=== PATIENT | female | born 1995 | race Hispanic/Latino ===

== ENCOUNTER 2022-06-01 09:12 | Emergency (ER) | payer BC ==
[~2022-06-01] VITALS: Ht 149.9 cm; Wt 42.6 kg
[2022-06-01 10:02] LABS: MEAN CORPUSCULAR HEMOGLOBIN 30.3 pg (27.0-33.0); MEAN CORPUSCULAR HGB CONC 33.7 g/dL (32.0-36.0); RED BLOOD CELL COUNT(AUTO) 4.22 MIL/uL (4.00-5.50); RED CELL DISTRIBUTION WIDTH 12.4 % (11.0-15.5); WHITE BLOOD COUNT (AUTO) 11.1 K/uL (4.8-10.8)
[2022-06-01 10:03] LABS: APPEARANCE,URINE CLOUDY (CLEAR); BILIRUBIN,URINE NEGATIVE (NEGATIVE); COLOR,URINE YELLOW (YELLOW); GLUCOSE, URINE (UA) NEGATIVE (NEGATIVE); KETONES,URINE 5 mg/dL (NEGATIVE); LEUKOCYTE ESTERASE ,URINE NEGATIVE Leu/uL (NEGATIVE); NITRATE,URINE NEGATIVE (NEGATIVE); OCCULT BLOOD,URINE SMALL (NEGATIVE); PROTEIN,URINE 200 mg/dL (NEGATIVE); UROBILINOGEN,URINE 0.2 mg/dL (0.2-1.0)
[2022-06-01 10:05] LABS: HCG,QUALITATIVE URINE NEGATIVE (NEGATIVE)
[2022-06-01 10:09] LABS: CREATININE 0.9 mg/dL (0.5-1.5); POTASSIUM 3.8 mmol/L (3.5-5.1)
[2022-06-01 10:14] LABS: ALBUMIN 3.9 g/dL (3.5-5.0); TOTAL PROTEIN, SERUM 7.6 g/dL (6.0-8.3)
[2022-06-01 10:25] LABS: MUCUS,URINE Few LPF (None Seen); SQUAMOUS EPITHELIAL CELL,UR Few /HPF (0-2)
[2022-06-01 10:27] LABS: BACTERIA,URINE Few /HPF (None Seen); WBC,URINE 0-1 /HPF (0-1)
[2022-06-01 10:33] LABS: URIC ACID CRYSTALS,URINE Few /LPF (None Seen)
[2022-06-01] MEDS ORDERED: TAMSULOSIN HCL 0.4 MG CAP.ER.24H PO STA (11:35)
[2022-06-01] MEDS ORDERED: 0.9%NACL 1000ML 1,000 ML IV ONE (12:00)
[2022-06-01] MEDS ORDERED: KETOROLAC 30MG VIAL (30MG/ML) IVP ONE (12:00)
[2022-06-01] MEDS ORDERED: TAMS-1 PO (12:43)
[2022-06-01] MEDS ORDERED: KETO10 PO (12:43)
[2022-06-01 12:55] VITALS: BP 117/70
== END 2022-06-01 12:55 | disposition home or self-care (01) ==
LOC: EDH 09:12
DX: N20.0 Calculus of kidney (principal)
CPT/HCPCS: 99284; 74176; 96374; 96361; 80053; 85027; 81001; 81025; 36415; J7030; J1885

== ENCOUNTER 2024-11-15 07:24 | Emergency (ER) | payer SELFPAY ==
[~2024-11-15] VITALS: Ht 149.9 cm; Wt 44.0 kg
[~2024-11-15 07:24] MED LIST: KETO10 PO; TAMS-55 PO
[2024-11-15 07:54] LABS: APPEARANCE,URINE CLOUDY (CLEAR); GLUCOSE, URINE (UA) NEGATIVE (NEGATIVE); HCG,QUALITATIVE URINE POSITIVE (NEGATIVE); LEUKOCYTE ESTERASE ,URINE NEGATIVE Leu/uL (NEGATIVE); NITRATE,URINE NEGATIVE (NEGATIVE); OCCULT BLOOD,URINE LARGE (NEGATIVE)
[2024-11-15 07:55] LABS: ADD UA MICROSCOPIC YES
[2024-11-15 07:56] LABS: SQUAMOUS EPITHELIAL CELL,UR MANY /HPF (0-2)
[2024-11-15 08:42] LABS: IMMATURE GRANULOCYTE ABSOLUTE 0.03 K/uL (0-1); NUCLEATED RED BLOOD CELLS 0.0 % (0.0-0.19); PLATELET COUNT (AUTO) 237 K/uL (130-400); RED BLOOD CELL COUNT(AUTO) 4.01 MIL/uL (4.00-5.50); RED CELL DISTRIBUTION WIDTH 12.7 % (11.0-15.5); WHITE BLOOD COUNT (AUTO) 11.1 K/uL (4.8-10.8)
[2024-11-15 08:46] LABS: CREATININE 0.6 mg/dL (0.5-1.0); GLOMERULAR FILTR. RATE CALC 124.0 mL/min (>90); GLUCOSE,RANDOM 100.0 mg/dL (70-105); SODIUM SERUM 139.0 mmol/L (136-145); UREA NITROGEN, BLOOD 13.0 mg/dL (7-18)
[2024-11-15 08:52] LABS: ASPARTATE AMINOTRANSFERASE 16.0 U/L (10-37); TOTAL PROTEIN, SERUM 7.9 g/dL (6.0-8.3)
--- NOTE | 2024-11-15 09:33 | NUR ---
TRANSF[place] [facility] [place]OMER SUPPORT MANAGER SERVICE DR DR COREAS. CECILE FOX
[2024-11-15] MEDS: 0.9%NACL 1000ML 1,000 ML IV ONE (09:50)
--- NOTE | 2024-11-15 10:07 | NUR ---
TRANSFER CALL PLACED BY PRIMARY NURSE TO [facility] [phone] INFORMATION PROVIDED WILL CALL BACK. CECILE FOX
--- NOTE | 2024-11-15 10:12 | HMCIMG ---
EXAM: US Obstetrical, Complete >14 weeks. CLINICAL HISTORY: confirm IUP TECHNIQUE: Transabdominal imaging of the maternal pelvis and a > 14 week gestation with image documentation. COMPARISON: None provided. FINDINGS: Uterus: Uterus measures 6.4 x 3.2 x 4.7 cm. Normal uterine contour and echotexture. No focal myometrial lesion identified. Endometrium: Endometrial thickness is 13 mm. No intrauterine gestational sac is visualized. Right Ovary: Measures 2.9 x 1.9 x 3.4 cm. Maintained vascularity. Adjacent to the right ovary, there is a complex structure measuring 2.7 x 2.1 x 3.0 cm, suspicious for ectopic . Left Ovary: Measures 3 x 2 x 2.6 cm. Normal morphology and flow within. Adnexa: Complex structure as described above in the right adnexa. No other adnexal mass or abnormality seen on the left. Cul-de-sac: Small free fluid within the pelvis. IMPRESSION: No intrauterine . Possible ectopic in the right adnexa (complex structure adjacent to right ovary measuring 2.7 x 2.1 x 3.0 cm). Recommend: Serial beta hCG monitoring and clinical correlation advised. Consider follow-up ultrasound as indicated. /Keri
--- NOTE | 2024-11-15 10:51 | ERN ---
ED Note History of Present Illness Stated Complaint: RLQ PAIN Chief Complaint: Abdominal Pain Time Seen by MD: 07:48 Dictation: 29 y/o F presenting to the ER with RLQ over the past few days. Pt also reports vomiting x1. Pt denies vaginal bleeding or dysuria. Allergies: Coded Allergies: No Known Allergies (Unverified Allergy, Unknown, 06/01/22) Home Meds Active Scripts Tamsulosin HCl (Flomax) 0.4 Mg Cap.er.24h, 0.4 MG PO DAILY for 7 Days, #[address] Prov:ANKUSH KOO MD 06/01/22 Ketorolac Tromethamine (Toradol) 10 Mg Tab, 10 MG PO TID PRN for PAIN LEVEL 1 TO 5 for 5 Days, #15 TAB Prov:ANKUSH KOO MD 06/01/22 Past Medical History Past Medical History: Kidney Stone, UTI Surgical History: None LMP: Nov 11, 2024 Review of System Dictation Constitutional: Negative for fever,chills, and weight loss Eyes: Negative for injury, pain,redness, and discharge ENT: Negative for injury,pain or swelling Cardiovascular: Negative for chest pain, palpitations, and edema Respiratory: Negative for shortness of breath, cough, and wheezing, Abdomen/GI: per HPI MS/Extremity: Negative for injury and deformity Skin: Negative for rash, and discoloration Neuro: Negative for headache, weakness, numbness, tingling, and seizure Psych: Negative for suicide ideation, homicidal ideation, and hallucinations Initial Vital Sign VS Vital Signs Date Time Temp Pulse Resp B/P (MAP) Pulse Ox O2 Delivery O2 Flow Rate FiO2 11/15/24 07:26 98.8 127 18 131/80 96 Room Air 0 11/15/24 07:30 21 Physical Exam Dictation General: awake, alert, NAD Head/Face: Normocephalic, atraumatic Eyes: PERRL, EOMI, vision at baseline ENT: oral cavity clear, TMs clear, no signs of infection Neck: Trachea midline, supple, no nuchal rigidity Cardiovascular: tachycardiac, normal S1/S2, No MRGs, no JVD Respiratory: CTAB, no respiratory distress, No rales or wheezes Abdomen: Soft, non-tender, non-distended, normal bowel sounds, no guarding or rebound. Skin: Warm, dry, normal turgor, no rash MS/Extremity: Pulses equal, no cyanosis, neurovascular intact, FROM Neuro: COAx4, GCS 15, strength 5/5, CN 2-12 intact, normal cerebellar exam, normal gait, Psych: Normal behavior, mood, and affect normal Results (Laboratory/Radiology) Laboratory/Radiology Laboratory Tests Test 11/15/24 07:39 11/15/24 08:25 Urine Color YELLOW (YELLOW) Urine Appearance CLOUDY (CLEAR) H Urine pH 5.5 (5.0-8.0) Urine Specific [place] 1.026 (1.001-1.031) Urine Protein 50 mg/dL (NEGATIVE) H Urine Glucose (UA) NEGATIVE mg/dL (NEGATIVE) Urine Ketones 40 mg/dL (NEGATIVE) H Urine Occult Blood LARGE (NEGATIVE) H Urine Nitrate NEGATIVE (NEGATIVE) Urine Bilirubin NEGATIVE mg/dL (NEGATIVE) Urine Urobilinogen 0.2 mg/dL (0.2-1.0) Urine Leukocyte Esterase NEGATIVE Sissy/uL Urine RBC 2-5 /HPF (0-1) H Urine WBC 11-25 /HPF (0-1) H Urine Squamous Epithelial Cells MANY /HPF (0-2) Urine Bacteria RARE /HPF (None Seen) Urine HCG, Qualitative POSITIVE (NEGATIVE) H White Blood Count 11.1 K/uL (4.8-10.8) H Red Blood Count 4.01 MIL/uL (4.00-5.50) Hemoglobin 12.3 g/dL (12.0-16.0) Hematocrit 36.1 % (36-48) Mean Corpuscular Volume 90.0 fL (79-99) Mean Corpuscular Hemoglobin 30.7 pg (27.0-33.0) Mean Corpuscular Hemoglobin Concent 34.1 g/dL (32.0-36.0) Red Cell Distribution Width 12.7 % (11.0-15.5) Platelet Count 237 K/uL (130-400) Mean Platelet Volume 11.6 fL (7.5-10.5) H Immature Granulocyte % (Auto) 0.3 % (0-1) Neutrophils (%) (Auto) 66.2 % (40.0-77.0) Lymphocytes (%) (Auto) 22.8 % (21.0-51.0) Monocytes (%) (Auto) 9.8 % (3.0-13.0) Eosinophils (%) (Auto) 0.6 % (0.0-8.0) Basophils (%) (Auto) 0.3 % (0.0-5.0) Neutrophils # (Auto) 7.3 K/uL (1.8-7.7) Lymphocytes # (Auto) 2.5 K/uL (1.0-4.8) Monocytes # (Auto) 1.1 K/uL (0.1-1.0) H Eosinophils # (Auto) 0.07 K/uL (0.00-0.70) Basophils # (Auto) 0.03 K/uL (0.00-0.20) Absolute Immature Granulocyte (auto 0.03 K/uL (0-1) Nucleated Red Blood Cells 0.0 % (0.0-0.19) Sodium Level 139 mmol/L (136-145) Potassium Level 3.4 mmol/L (3.5-5.1) L Chloride Level 103 mmol/L (101-111) Carbon Dioxide Level 25 mmol/L (21-32) Blood Urea Nitrogen 13 mg/dL (7-18) Creatinine 0.6 mg/dL (0.5-1.0) Glomerular Filtration Rate Calc 124 mL/min (>90) Random Glucose 100 mg/dL (70-105) Total Calcium 9.7 mg/dL (8.5-10.1) Total Bilirubin 0.4 mg/dL (0.2-1.0) Direct Bilirubin 0.1 mg/dL (0.0-0.3) Aspartate Amino Transf (AST/SGOT) 16 U/L (10-37) Alanine Aminotransferase (ALT/SGPT) 23 U/L (12-78) Alkaline Phosphatase 60 U/L (50-136) Total Protein 7.9 g/dL (6.0-8.3) Albumin 3.9 g/dL (3.5-5.0) Lipase 45 U/L (16-77) Human Chorionic Gonadotropin, Quant 2276 mIU/mL (0-5) H Labs Reviewed?: Yes ED Course ED Course Orders Procedure Category Date Status Time Urinalysis Profile LAB 11/15/24 Complete 07:34 ,Urine Test LAB 11/15/24 Complete 07:34 Basic Metabolic Panel LAB 11/15/24 Complete 07:48 Cbc With Differential LAB 11/15/24 Complete 07:48 Hepatic Function Panel LAB 11/15/24 Complete 07:48 Lipase LAB 11/15/24 Complete 07:48 Culture Urine LEONARDO 11/15/24 In Process 08:01 Ondansetron Odt 4mg PHA 11/15/24 Complete Tab (Zofran 4mg Odt) 08:30 Hcg,Quantitative LAB 11/15/24 Complete 08:12 Us Ob <14 Weeks US 11/15/24 Resulted 08:12 Type And Screen BBK 11/15/24 In Process 09:32 0.9%Nacl 1000ml (Ns PHA 11/15/24 Complete 1000ml) 10:00 Current Medications Medications (Trade) Dose Ordered Sig/Yosef Route PRN Reason Start Time Stop Time Status Last Admin Dose Admin Ondansetron HCl (zoFRAN 4MG ODT) 4 mg ONCE ONCE SL 11/15/24 08:30 11/15/24 08:31 DC 11/15/24 08:20 Sodium Chloride 1,000 ml @ 0 mls/hr ONCE ONCE IV 11/15/24 10:00 11/15/24 10:01 DC 11/15/24 09:50 Vital Signs Date Time Temp Pulse Resp B/P (MAP) Pulse Ox O2 Delivery O2 Flow Rate FiO2 11/15/24 09:50 99.3 116 14 140/84 100 Room Air* 0 21 11/15/24 07:30 98.8 127 16 131/80 97 Room Air* 0 21 11/15/24 07:26 98.8 127 18 131/80 96 Room Air 0 Medical Decision Making MDM MDM: Differential diagnosis: Rationale: Tests considered and ordered secondary to shared decision making include: labs, ECG and radiology Previous outside records reviewed: Old ER visits. Risk of complication and/or morbidity or mortality of patient management: None Medications-Per medication reconciliation Need for hospitalization: Patient does meet criteria for hospitalization. Need for emergency major/minor surgery: No There are no social concerns with this patient. Prescription drug management Prescriptions will include symptomatic care Patient's prior external medical records from other ER visits were reviewed by me as indicated. Prior testing and results from previous visits were reviewed. Prior tests were taken into account with medical decision making and resource utilization, independent historian/historians were used to obtain complete medic al history. I independently interpreted the test that were performed, results were reviewed by me and considered findings on radiology if ordered. Medical management and examination interpretation discussions were had by me with other qualified healthcare professionals as indicated for the patient's care. 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 Critical Care Note Comment(s) Total critical care time was 33 minutes. Excluding time for procedures. Management of critically ill patient with concern for acute decompensation. Management included interpretation of laboratory values and imaging, hemodynamics, time for consultation with consultants and admitting physician. DX & DISP Disposition: Transfer Departure Impression: Primary Impression: Ectopic Condition: Stable Referrals: SELF,REFERRAL (PCP) TONY COREAS MD Nov 15, 2024 10:51
--- NOTE | 2024-11-15 10:55 | NUR ---
TRANSFER INTAKE NURSE KIM CALL BACK WITH ACCEPTANCE UNDER DR ASHLEY BRANDT TO [facility] [place] [facility] AND PRIMARY NURSE TO CALL REPORT TO [phone] AND EMS . CECILE FOX
--- NOTE | 2024-11-15 11:29 | NUR ---
CALLED [facility] TO SET UP TRANSFER.
--- NOTE | 2024-11-15 11:33 | NUR ---
PATIENT REPORT GIVEN TO NURSE VAN [place] [facility] [place]
--- NOTE | 2024-11-15 11:40 | NUR ---
[facility] JUST ARRIVED AND ARE AT BEDSIDE. THEY ARE PREPPING PT FOR TRANSFER
[2024-11-15 11:44] VITALS: BP 120/76; PULSE 112; RESP 14; TEMP 99.3; O2SAT 96
== END 2024-11-15 10:30 ==
LOC: EDH 07:24
DX: O00.90 Unspecified ectopic pregnancy without intrauterine pregnancy (principal); Z3A.00 Weeks of gestation of pregnancy not specified; Z79.899 Other long term (current) drug therapy
CPT/HCPCS: 99291; 96360; 76801; 80076; 80048; 84702; 83690; 85025; 86850; 86900; 86901; 87086; 81001; 81025; 36415; J7030